=== PATIENT | male | born 1985 | race Caucasian/White ===

== ENCOUNTER 2020-06-16 11:05 | Emergency (ER) | payer OTHER, SELFPAY ==
--- NOTE | ~2020-06-16 | XR_ITS ---
EXAMINATION: XR wrist LT min 3V DATE: 06/16/2020 11:58 INDICATION: Left wrist injury and pain. TECHNIQUE: 4 views of left wrist were obtained. COMPARISON: None. FINDINGS: Bone alignment is normal. No fracture. Joint spaces are well maintained. IMPRESSION: 1. Normal left wrist. Reviewed, dictated and finalized at location A. [employer] IMPRESSION: 1. Normal left wrist.
--- NOTE | ~2020-06-16 | XR_ITS ---
EXAMINATION: XR elbow RT min 3V INDICATION: Left elbow pain TECHNIQUE: Four views of the left elbow were obtained. COMPARISON: None available FINDINGS: A large elbow joint effusion is present. There appears to be subtle cortical buckling in th e neck of the radius. No displaced fracture is identified. IMPRESSION: 1. Possible nondisplaced radial neck fracture. Presence of an elbow joint effusion is consistent with occult fracture if not related to the radial head. Reviewed, dictated and finalized at location A. [employer] IMPRESSION: 1. Possible nondisplaced radial neck fracture. Presence of an elbow joint effus ion is consistent with occult fracture if not related to the radial head.
[2020-06-16 11:15] VITALS: BP 143/90; PULSE 90; RESP 15; TEMP 36.1; O2SAT 99
--- NOTE | 2020-06-16 11:47 | PC.NURSE ---
Patient is in radiology at this time.
--- NOTE | 2020-06-16 13:40 | ED.GENADULT ---
HPI - General Adult General Chief complaint: Extremity Injury, Upper Stated complaint: fell off ladder, arm/wrist pain Time Seen by Provider: 06/16/20 11:30 Source: patient Mode of arrival: ambulatory Limitations: no limitations History of Present Illness HPI narrative: Patient presents with chief complaint of left wrist pain and right elbow pain that began after falling off of the last rung of a ladder and placing both hands out to catch himself on Friday. Patient denies head impact or loss of consciousness. Patient reports bruising and swelling to the left wrist but states that the pain is minimal. Patient reports that his greatest pain is to the right elbow which she has lost some range of motion and as well as the ability to supinate or pronate without severe pain. Patient denies loss of sensation in his wrist on the right or his hands. Patient denies any other symptoms or concerns. Related Data Allergies Allergy/AdvReac Type Severity Reaction Status Date / Time Penicillins Allergy Unknown Verified 06/16/20 11:42 Review of Systems Review of Systems: Narrative: CONSTITUTIONAL: Denies fever, chills, or sweats. EYES: Denies visual changes, redness, or discharge. ENT: Denies rhinorrhea, congestion, sore throat, or otalgia. CARDIOVASCULAR: Denies chest pain, palpitations, or edema. RESPIRATORY: Denies cough or dyspnea. GASTROINTESTINAL: Denies abdominal pain, nausea, vomiting, or diarrhea. GENITOURINARY: Denies dysuria or hematuria. SKIN: Denies rash or itching. MUSCULOSKELETAL: Reports left wrist and right elbow pain denies back pain, joint pain, or myalgia. NEUROLOGIC: Denies headache, numbness, dizziness, or weakness. PSYCHIATRIC: Denies anxiety or depression. PMFSH Social History Social History Gender identity (if verbalized by the patient): Male Exam Narrative: Exam Narrative: GENERAL: Well-appearing, well-nourished, and in no acute distress. HEAD: Normocephalic, atraumatic. EYES: PERRLA and EOMI. NECK: Supple. No adenopathy or masses. Motion intact CHEST: Clear to auscultation. No respiratory distress. No wheezes rales or rhonchi HEART: Regular rate and rhythm. EXTREMITIES: Ecchymosis noted to the palm of the left first digit. Range of motion intact. No bony tenderness. Some tenderness to the left wrist without obvious signs of deformity. No pain proximally. Pain swelling and ecchymosis noted to the right elbow. Decreased flexion and extension as well as supination or pronation. Machine Lead Burner strength and sensation intact to right hand. Pulses intact bilaterally. SKIN: Warm, dry, no rash. NEURO: No focal deficits. Alert and oriented x3. PSYCH: Normal mood and affect. Course Vital Signs Vital signs: Vital Signs Temperature 97.0 F L 06/16/20 11:15 Pulse Rate 90 06/16/20 11:15 Respiratory Rate 15 06/16/20 11:15 Blood Pressure 143/90 H 06/16/20 11:15 Pulse Oximetry 99 06/16/20 11:15 Temperature 97.0 F L 06/16/20 11:15 Pulse Rate 90 06/16/20 11:15 Respiratory Rate 15 06/16/20 11:15 Blood Pressure 143/90 H 06/16/20 11:15 Pulse Oximetry 99 06/16/20 11:15 Procedures Orthopedic Splinting/Casting Injury #1: Side: right Upper Extremity Injury Location: elbow Upper Extremity Immobilizer: posterior splint Splint: customized in ED OCL: long arm Pre-Procedure Neuro Vascular Exam: normal Post-Procedure Neuro Vascular Exam: normal Other Orthopedic Equipment: other (SLING) Medical Decision Making MDM Narrative Medical decision making narrative: Patient placed in long-arm posterior splint and given a sling. Discussed with patient importance of following up loan specialist for further evaluation and management of his fracture. Patient instructed of the emergent signs and symptoms that require return to emergency department. Differential Diagnosis Differential Diagnosis: Fracture, sprain, strain Vital Signs Vital Signs: Vital
[2020-06-16 14:15] VITALS: BP 139/88; PULSE 88; RESP 16; TEMP 36.7; O2SAT 100
== END 2020-06-16 14:15 | disposition home or self-care (01) ==
PROVIDERS: Emergency Provider Emergency Medicine
DX: S52.134A Nondisplaced fracture of neck of right radius, initial encounter for closed fracture (principal); S60.222A Contusion of left hand, initial encounter; W11.XXXA Fall on and from ladder, initial encounter
CPT/HCPCS: 29105; 73080; 73110; 99284; A4565